=== PATIENT | female | born 1990 | race Hispanic/Latino ===

== ENCOUNTER 2023-10-26 10:00 | Emergency (ER) | payer MEDICAID ==
[~2023-10-26] VITALS: Ht 167.6 cm; Wt 73.0 kg
[2023-10-26] MEDS ORDERED: ONDANSETRON 4 MG/TAB ODT PO ONE (11:05)
[2023-10-26] MEDS ORDERED: ZOFRAN4 MG/TAB PO (11:17)
[2023-10-26 11:42] VITALS: BP 113/79
== END 2023-10-26 11:55 | disposition home or self-care (01) ==
LOC: ED 10:00
DX: K29.70 Gastritis, unspecified, without bleeding (principal)